=== PATIENT | female | born 2000 | race American Indian/Alaskan Native ===

== ENCOUNTER 2024-05-20 21:17 | Emergency (ER) | payer BC, MEDICAID, SELFPAY ==
[2024-05-20 22:04] VITALS: BP 146/84; PULSE 60; RESP 18; TEMP 36.7; O2SAT 95; BMI 38.0
--- NOTE | 2024-05-20 22:07 | EKG_ITS ---
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
--- NOTE | 2024-05-20 22:07 | XR_ITS ---
Examination: PA chest single view Technique: Upright PA chest single view Exam date and time: May 20, 2024 1013 hrs. Indications: 2 days with chest pain Findings: Normal heart size Lungs are clear The osseous structures are intact Impression: No active disease
--- NOTE | 2024-05-20 22:08 | EDRME_ITS ---
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 There is also some weird feeling in her head. Patient gave recently and was discharged from [place] today. Patient noticed these signs during her 6 hour car trip back here where she lives. Chief Complaint: General Adult/Misc Complain Vital signs: Vital Signs Temperature 98.1 F 05/20/24 22:04 Pulse Rate 60 05/20/24 22:04 Respiratory Rate 18 05/20/24 22:04 Blood Pressure 146/84 H 05/20/24 22:04 Pulse Oximetry (%) 95 05/20/24 22:04 Oxygen Delivery Method Room Air 05/20/24 22:04
[2024-05-20 22:53] LABS: Basophils % (Auto) 0 % (0-2.5); Eosinophils % (Auto) 0 % (0-10); Hematocrit 27.4 % (36.0-46.0); Immature Granulocytes % (Auto) 1 % (0-0); Immature Granulocytes Auto 0.06 Thou/mm3 (0.00-0.00); Lymphocytes # (Auto) 1.4 Thou/mm3 (1.0-4.8); Lymphocytes % (Auto) 11 % (10-50); Mean Corpuscular Hemoglobin 23.3 pg (25.0-35.0); Mean Corpuscular Volume 75 fL (80-100); Monocytes # (Auto) 0.5 Thou/mm3 (0.0-0.8); Monocytes % (Auto) 4 % (0-12); Neutrophils # (Auto) 10.8 Thou/mm3 (1.8-7.7); Neutrophils % (Auto) 84 % (37-80); Nucleated Red Blood Cell % 0 /100 WBC (0); Platelet Count 247 Thou/mm3 (140-440); RDW Standard Deviation 54.7 fL (36.4-46.3); Red Blood Count 3.65 Miln/mm3 (4.00-5.20); White Blood Count 12.7 Thou/mm3 (3.6-11.0)
[2024-05-20 22:59] LABS: Partial Thromboplastin Time 26.1 Seconds (22.0-36.0)
[2024-05-20 23:02] LABS: Hemoglobin 8.5 g/dL (12.0-16.0)
[2024-05-20 23:16] LABS: Alanine Aminotransferase 17 U/L (10-49); Albumin, Serum 3.7 gm/dL (3.5-5.0); Albumin/Globulin Ratio 1.7 (1.2-2.2); Alkaline Phosphatase 210 U/L (46-116); Anion Gap 6 (7-16); Aspartate Amino Transferase 21 U/L (0-34); BUN/Creatinine Ratio 10 Ratio (12-20); Bilirubin,Total 0.4 mg/dL (0.3-1.2); Blood Urea Nitrogen 6 mg/dL (9-23); Calcium 8.8 mg/dL (8.3-10.6); Carbon Dioxide 24.8 mMol/L (20.0-31.0); Chloride 110 mMol/L (98-107); Creatinine (Component) 0.6 mg/dL (0.6-1.3); Estimated Creatinine Clearance 139.6 mL/min (>60); Globulin 2.2 gm/dL (2.3-3.5); Glucose 78 mg/dL (74-106); Osmolality,Calculated 277 (275-295); Potassium 4.4 mMol/L (3.4-5.1); Sodium 141 mMol/L (136-145); Total Protein 5.9 gm/dL (5.7-8.2); Troponin I < 0.020 ng/mL (0.0-0.045); eGFR > 60 See Note
[2024-05-21 00:03] LABS: B-Type Natriuretic Peptide 118 pg/mL (0-100)
--- NOTE | 2024-05-21 00:55 | XR_ITS ---
Examination: Duplex scan of the lower extremity, unilateral right complete Date and time of exam: May 21, 2024 0101 hrs. Indications: liver 11/11/2023 with onset right leg swelling Technique: Duplex scan of the extremity veins using B-mode/grayscale imaging and Doppler spectral analysis and color flow Attention is directed to internal echogenicity, compression and augmentation involving these veins, color flow assessment, spectral analysis Findings: Major deep venous structures in the extremity demonstrate normal course and caliber. There is no evidence of deep vein thrombosis. Normal color flow and spectral analysis Impression: Negative for DVT..
[2024-05-21 01:54] LABS: Prothrombin Time 10.6 Seconds (9.0-12.2)
[2024-05-21 02:00] VITALS: BP 156/62; PULSE 56; RESP 16; TEMP 36.8; O2SAT 100
[2024-05-21 02:06] VITALS: BP 156/62; PULSE 55; RESP 18; TEMP 37.1; O2SAT 99
--- NOTE | 2024-05-21 02:06 | PRELIM_ITS ---
Right lower extremity venous Doppler ultrasound. May 21, 2024 at 0101 hours Clinical history: Ru le out deep vein thrombosis.No prior study is available for comparison.Findings:Nguyen scale, color douglas w and spectral Doppler evaluation of the right lower extremity deep veins were performed.The common f emoral, superficial femoral and popliteal veins are patent and compressible. Normal respiratory varia tion and augmentation are noted. The great saphenous vein is patent and compressible at the level of the saphenofemoral junction. The calf veins to the extent visualized are patent. Impression:No evide nce of deep venous thrombosis in the right lower extremity. Report Electronically Signed By: Roberto ortiz 05/21/2024 2:05:20 AM [EST]
--- NOTE | 2024-05-21 02:15 | PD.EDADULT ---
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 There is also some weird feeling in her head. Patient gave recently and was discharged from [place] today. Patient noticed these signs during her 6 hour car trip back here where she lives. -------- Dr. Sharp?s Main ED Evaluation: 23yo female presents to the ED for a chief complaint of RLE swelling. Patient states she recently gave vaginal at [place] and was discharged today. She states she previously had RLE swelling while she was admitted and was advised to ambulate more. She states she feels her swelling worsened, so she came in for evaluation. She denies any N/V, fever, chills, chest pain, shortness of breath or any other associated symptoms. Patient notes she was previously diagnosed with preeclampsia. Related Data Home Medications ?Medication ?Instructions ?Recorded ?Confirmed albuterol sulfate 90 mcg/actuation 2 puff inhalation .PRN PRN 09/06/23 09/06/23 aerosol inhaler cholecalciferol (vitamin D3) 1,250 1,250 mcg PO QWEEK 09/06/23 09/06/23 mcg (50,000 unit) capsule Allergies Allergy/AdvReac Type Severity Reaction Status Date / Time aspirin Allergy Intermediate eyes swell Verified 04/25/23 18:46 ibuprofen Allergy Intermediate eyes swell Verified 04/25/23 18:46 Review of Systems Review of Systems Systems Reviewed: All systems reviewed, normal except as documented Past Medical History Past Medical History CARDIAC: Negative Congestive Heart Failure RESPIRATORY: Positive Respiratory Disorders and Asthma; Negative Chronic Obstructive Pulmonary Disease (COPD) GENITOURINARY: Negative Renal Disease ENDOCRINE: Negative Diabetes Mellitus Type 1 or Diabetes Mellitus Type 2 Surgical History SURGICAL: Positive Cardiac Surgery Social History SMOKING STATUS: Former smoker ED Exam Narrative Physical exam: GENERAL APPEARANCE: alert and oriented x 4, well-developed, well-nourished, no acute distress VITALS: All vitals were reviewed and the pulse ox is 99% on room air, which is normal according to my interpretation. HEENT: Normocephalic, atraumatic; pupils equal, round, reactive to light; EOMI; mucous membranes pink, moist; oropharynx clear NECK: Supple LUNGS: CTABL; no wheezes, no rales, no rhonchi HEART: Regular rate, regular rhythm; normal S1, S2; no murmurs ABDOMEN: non distended; normal BS; soft, no tenderness, no guarding, no rebound; no masses, no organomegaly, no hernia BACK: no CVA tenderness EXTREMITIES: atraumatic; bilateral lower extremity nonpitting edema R>L NEUROLOGIC: awake; alert and oriented x4; cranial nerves II-XII grossly intact; no focal sensory or motor deficits PSYCHIATRIC: appropriate mood and affect SKIN: warm, dry, normal color; no rashes Course Course Course Narrative: CXR is ordered for determining the etiology of chest pain per MONIE Lemus. 0253: Patient's repeat blood pressure is 139/65. Patient is stable to be discharged home. Quality Measures none Orders Category Date Time Status EKG (ED ONLY) *Do not use* NOW Care 05/20/24 22:08 Completed Discharge Routine Discharge 05/21/24 02:57 Active EKG (ED Only) Stat Exams 05/20/24 22:07 Draft US venous doppler LE RT Stat Exams 05/21/24 00:55 Taken XR chest 1V portable Stat Exams 05/20/24 22:07 Completed BNP [B-Type Natriuretic Peptide] Stat Lab 05/20/24 22:34 Completed CBC Stat Lab 05/20/24 22:34 Completed Comprehensive Metabolic Panel Stat Lab 05/20/24 22:34 Completed INR [Prothrombin Time with INR] Stat Lab 05/21/24 00:25 Completed Partial Thromboplastin Time Stat Lab 05/20/24 22:34 Completed Troponin I Stat Lab 05/20/24 22:34 Completed Vital Signs Vital signs: Vital Signs Temperature 98.1 F 05/20/24 22:04 Pulse Rate 60 05/20/24 22:04 Respiratory Rate 18 05/20/24 22:04 Blood Pressure 146/84 H 05/20/24 22:04 Pulse Oximetry (%) 95 05/20/24 22:04 Oxygen Delivery Method Room Air 05/20/24 22:04 [facility] Patient data External records reviewed:: [facility] previous records (Per chart review, patient was seen here on 11/02/23 for strep pharyngitis.) Clinical information provided by:: patient Social determinants that could affect healthcare access:: none Patient has the following chronic illnesses:: asthma How is presenting disease/condition affected by chronic disease/condition?: uneffected by Evaluation data The following diagnostics were reviewed and interpreted by me:: lab results, radiology exam(s) and EKG tracing(s) Lab and/or radiology exams considered but not ordered:: none Interpretation Summary: WBC count is elevated at 12.7, CMP is normal, BNP is slightly elevated at 118, PTT is normal, PT and INR are normal, according to my interpretation. EKG done at 2221, sinus bradycardia, rate of 54, normal axis, no ectopy, no acute ischemia, according to my interpretation. ----- [facility] Report Signed Patient: [employer] Record#: [id number] Birthdate: 2000 Age/Sex: 23 / F Location: [facility] Attending Dr: Ordering Physician: Emanuel Lemus PA-C Date of Service: 05/20/24 Procedure(s): XR chest 1V portable Accession Number(s): [id number] cc: Moose Chiang MD; Emanuel Lemus PA-C~ Examination: PA chest single view Technique: Upright PA chest single view Exam date and time: May 20, 2024 1013 hrs. Indications: 2 days with chest pain Findings: Normal heart size Lungs are clear The osseous structures are intact Impression: No active disease Dictated By: Moose Chiang MD Signed By: <Electronically signed by Moose Chiang MD in OV> 05/20/249 ------ [facility] Preliminary Report Draft Patient: [employer] Record#: [id number] Birthdate: 2000 Age/Sex: 23 / F Location: [facility] Attending Dr: Ordering Physician: Date of Service: Procedure(s): Accession Number(s): cc: ~ Right lower extremity venous Doppler ultrasound. May 21, 2024 at 0101 hours Clinical history: Rule out deep vein thrombosis. No prior study is available for comparison. Findings: Nguyen scale, color flow and spectral Doppler evaluation of the right lower extremity deep veins were performed. The common femoral, superficial femoral and popliteal veins are patent and compressible. Normal respiratory variation and augmentation are noted. The great saphenous vein is patent and compressible at the level of the saphenofemoral junction. The calf veins to the extent visualized are patent. Impression: No evidence of deep venous thrombosis in the right lower extremity. Report Electronically Signed By: Roberto Suresh 05/21/2024 2:05:20 AM [EST] Medications Medications considered but not ordered:: none Medication administrations:: see above, if any Consultations Consultation(s) initiated? (list below): No Diagnosis Differential Diagnosis ED Complaint MDM: DVT, preeclampsia, eclampsia, heart failure Most likely diagnosis given after review of the tests above:: see below Admission Indicated Admission indicated?: not indicated Explain why admission is indicated or not indicated:: Admission criteria not met. Admission Request Was there a request for admission?: No Disposition Plan Disposition Plan: Discharge Discharge Attestation Discharge Attestation: The patient and all family members were given an opportunity to ask questions and understood the discharge instructions. Discharge instructions specifically effects, indications for sooner follow up or return to the emergency department, and the expected course of current diagnosis. Patient condition: Stable Medical Decision Making Differential Diagnosis Differential Diagnosis: DVT, preeclampsia, eclampsia, heart failure Lab Data 05/20/24 22:34 05/20/24 22:34 Labs: Lab Results 05/20/24 05/21/24 Range/Units 22:34 00:25 WBC 12.7 H (3.6-11.0) Thou/mm3 RBC 3.65 L (4.00-5.20) Miln/mm3 Hgb 8.5 L (12.0-16.0) g/dL Hct 27.4 L (36.0-46.0) % MCV 75 L (80-100) fL MCH 23.3 L (25.0-35.0) pg MCHC 31.0 (31.0-37.0) g/dl RDW Std Deviation 54.7 H (36.4-46.3) fL Plt Count 247 (140-440) Thou/mm3 Neut % (Auto) 84 H (37-80) % Lymph % (Auto) 11 (10-50) % [place] % (Auto) 4 (0-12) % Eos % (Auto) 0 (0-10) % Baso % (Auto) 0 (0-2.5) % Neut # (Auto) 10.8 H (1.8-7.7) Thou/mm3 Lymph # (Auto) 1.4 (1.0-4.8) Thou/mm3 [place] # (Auto) 0.5 (0.0-0.8) Thou/mm3 Eos # (Auto) 0.0 (0.0-0.5) Thou/mm3 Baso # (Auto) 0.0 (0.0-0.2) Thou/mm3 Immature Gran # (Auto) 0.06 H (0.00-0.00) Thou/mm3 Absolute Nucleated RBC 0.00 (0.00-0.00) Thou/mm3 Immature Gran % 1 H (0-0) % Nucleated RBC % 0 (0) /100 WBC PT 10.6 (9.0-12.2) Seconds INR 1.0 (0.9-1.3) APTT 26.1 (22.0-36.0) Seconds Sodium 141 (136-145) mMol/L Potassium 4.4 (3.4-5.1) mMol/L Chloride 110 H (98-107) mMol/L Carbon Dioxide 24.8 (20.0-31.0) mMol/L Anion Gap 6 L (7-16) BUN 6 L (9-23) mg/dL Creatinine 0.6 (0.6-1.3) mg/dL Estim Creat Clear Calc 139.6 (>60) mL/min eGFR > 60 (60 - ) See Note BUN/Creatinine Ratio 10 L (12-20) Ratio Glucose 78 (74-106) mg/dL Calculated Osmolality 277 (275-295) Calcium 8.8 (8.3-10.6) mg/dL Corrected Calcium 9.0 (8.5-10.1) mg/dL Total Bilirubin 0.4 (0.3-1.2) mg/dL AST 21 (0-34) U/L ALT 17 (10-49) U/L Alkaline Phosphatase 210 H (46-116) U/L Troponin I < 0.020 (0.0-0.045) ng/mL B-Natriuretic Peptide 118 H (0-100) pg/mL Total Protein 5.9 (5.7-8.2) gm/dL Albumin 3.7 (3.5-5.0) gm/dL Globulin 2.2 L (2.3-3.5) gm/dL Albumin/Globulin Ratio 1.7 (1.2-2.2) Discharge Plan Plan Patient Disposition: HOME (Self Care) Disposition Comment: Stable for discharge Patient condition on transfer: Stable Prescriptions/Referrals Prescriptions/Med Rec: No Action albuterol sulfate 90 mcg/actuation HFA aerosol inhaler 2 puff inhalation .PRN PRN cholecalciferol (vitamin D3) 1,250 mcg (50,000 unit) capsule 1,250 mcg PO QWEEK Referrals: Caleb Winters PA-C [Primary Care Provider] - In 1 week Problem List Clinical Impression: Pedal edema, edema Patient/Caregiver Discharge Instructions Discharge Activity: activity as tolerated Education Materials: ED Leg Swelling in Both Legs Additional Instructions: Please return to the emergency department for any worsening or any further medical problems. 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
[2024-05-21 02:53] VITALS: BP 139/65; PULSE 59; RESP 18; O2SAT 100
== END 2024-05-21 03:02 | disposition home or self-care (01) ==
PROVIDERS: Physician Assistant; Emergency Provider Emergency Medicine; PCP Physician Assistant
DX: O12.05 Gestational edema, complicating the puerperium (principal); O99.893 Other specified diseases and conditions complicating puerperium; R07.9 Chest pain, unspecified; R00.1 Bradycardia, unspecified
CPT/HCPCS: 36415; 71045; 80053; 81001; 83880; 84484; 85025; 85610; 85730; 93005; 93971; 99284

== ENCOUNTER → 2024-09-08 | Outpatient (CLI) | payer MEDICAID, SELFPAY ==
--- NOTE | 2024-09-08 10:45 | XR_ITS ---
Examination: Abdomen sonogram, complete Date and time of exam: September 08, 2024 1131 hours INDICATIONS: Irregular menses and left lower abdominal pain 3 months, . Technique: Multiple real-time grayscale transabdominal sonographic images of the abdomen have been obtained. Findings: Negative for gallstones Gallbladder wall 0.43 cm Normal common bile duct 0.4 cm Pancreatic head 2.1 cm Gallbladder not enlarged Liver 18.4 cm fatty infiltration Normal hepatopedal portal venous flow Patent IVC Right kidney 10.6 cm cortex 1.0 cm Left kidney 11.4 cm cortex 1.7 cm Spleen 10.7 cm with fluid adjacent to the spleen measuring 6.5 x 5.9 x 6.0 cm IMPRESSION: Fluid collection adjacent to the spleen, recommend CT scan abdomen pelvis post intravenous contrast follow-up
--- NOTE | 2024-09-08 11:15 | XR_ITS ---
Examination: Pelvic ultrasound, transabdominal, complete Technique: Transabdominal ultrasound of the pelvis performed using grayscale imaging Date and time of exam: September 08, 2024 1123 hours INDICATIONS: Irregular menses 3 months, 3 months FINDINGS: Uterus 7.2 cm endometrial stripe 0.7 cm Intrauterine device satisfactory position Right ovary 3.3 cm arterial flow Left ovary 2.4 cm arterial flow IMPRESSION: No uterine mass or intrauterine gestation No adnexal mass
== END | disposition home or self-care (01) ==
LOC: CDIM 11:07
PROVIDERS: PCP Nurse Practitioner Family; Referring Provider Nurse Practitioner Family; Visit Provider Nurse Practitioner Family
DX: K59.09 Other constipation (principal); N92.6 Irregular menstruation, unspecified; R10.30 Lower abdominal pain, unspecified; Z97.5 Presence of (intrauterine) contraceptive device
CPT/HCPCS: 76700; 76856

== ENCOUNTER → 2024-10-26 | Outpatient (CLI) | payer MEDICAID, SELFPAY ==
[2024-10-23 16:49] LABS: HCG Qualitative,Urine Negative
--- NOTE | 2024-10-26 10:30 | XR_ITS ---
Examination: CT abdomen, without intravenous contrast. CT pelvis, without intravenous contrast. CT abdomen, with intravenous contrast. CT pelvis, with intravenous contrast. 2-D sagittal coronal reconstructions. Date and time of exam:October 26, 2024 1035 hours Comparison April 25, 2023 INDICATIONS: Right upper abdominal pain beginning 5 months ago CTDI: vol (mGy) 18.8 DLP: (mGycm) 996 Technique: Multiple 3.0 axial images of the abdomen and pelvis without intravenous contrast, 3.0 mm slice thickness. Multiple 3.0 postcontrast images abdomen and pelvis also obtained, post intravenous injection 60 cc [id number] 2-D sagittal coronal reconstructions Nodose protocols, automated exposure control, adjustment MA KV according to patient size FINDINGS: No focal liver or splenic lesion Contracted gallbladder No pancreatic or adrenal mass No renal or ureteral calculi, no hydronephrosis Aorta normal size No pericecal inflammatory change No bowel obstruction or diverticulitis Mild to moderate free fluid in the pelvis Intrauterine device is abnormally low in position in retroverted uterus Bladder intact Osseous structures intact IMPRESSION: Abnormally low position of intrauterine device No CT findings of appendicitis bowel obstruction or diverticulitis
== END | disposition home or self-care (01) ==
LOC: CCTX 09:59
PROVIDERS: Referring Provider Nurse Practitioner Family; Visit Provider Nurse Practitioner Family
DX: R10.11 Right upper quadrant pain (principal); Z30.431 Encounter for routine checking of intrauterine contraceptive device; Z32.00 Encounter for pregnancy test, result unknown
CPT/HCPCS: 74178; 81025; A4649; Q9967

== ENCOUNTER → 2024-12-22 | Outpatient (BNVA) | payer MEDICAID, SELFPAY | END | disposition home or self-care (01) | PROVIDERS: PCP Nurse Practitioner Family; Referring Provider Nurse Practitioner Family; Visit Provider Urology | DX: Z09 Encounter for follow-up examination after completed treatment for conditions other than malignant neoplasm (principal); Z87.440 Personal history of urinary (tract) infections; F32.A Depression, unspecified; Z87.891 Personal history of nicotine dependence | CPT/HCPCS: 81003; 99212; G0463 ==

== ENCOUNTER 2025-01-11 13:51 | Outpatient (AMB) | payer MEDICAID, SELFPAY ==
[2025-01-11 14:02] VITALS: BP 109/75; PULSE 81; RESP 18; TEMP 36.6; O2SAT 98; BMI 37.1
--- NOTE | 2025-01-11 14:02 | PD.GSCLVISIT ---
Vital Signs - [facility] 01/11/25 14:02 Height 1.5 m Height Method Stated Weight 83.461 kg Weight Measurement Method Standing Scale BMI 37.1 BP 109/75 Blood Pressure Source Automatic Cuff Blood Pressure Location Right Upper Arm Position Sitting Respiration 18 Pulse 81 Pulse Source Monitor Temp 97.9 F Temp Source Temporal Artery Scan Pulse Oximetry (%) 98 Oxygen Delivery Method Room Air Med/Allergies Allergies & Medications Allergies aspirin Allergy (Intermediate, Verified 01/11/25 14:04) eyes swell ibuprofen Allergy (Intermediate, Verified 01/11/25 14:04) eyes swell Medication Reconciliation No Known Home Medications 01/11/25 [History Confirmed 01/11/25] MA Intake Visit Data Collection New Patient or Established: Established Patient (seen at [facility] within 3 years) Seen by Clinical Staff ONLY (RN/MA): No Reason for Visit:: HEMORRHOID REFERRAL Pain Present Currently: Yes Pain Location: Buttock Pain scale:: 8 Pain Scale Used: Gonzalez-Franco/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 Required: No PCP or OBGYN visit in last 3 months: Yes Hx Now: No Date of Last Menstrual Period: 12/13/24 Do You Feel Safe at Home: Yes Authorities Contacted: N/A Smoking Status Smoking Status: Former smoker (VAPES) Are you interested in quitting?: No Would you like additional Smoking Cessation Counseling?: No Immunization / Flu Flu Vaccine in the Last 12 Months: No Flu Vaccine Exclusion Criteria: No Exclusion Criteria Past Medical History Past Medical History CARDIAC: Negative Congestive Heart Failure RESPIRATORY: Positive Asthma; Negative Chronic Obstructive Pulmonary Disease (COPD) GENITOURINARY: Negative Renal Disease REPRODUCTIVE: Positive Previous Pregnancies ENDOCRINE: Negative Diabetes Mellitus Type 1 or Diabetes Mellitus Type 2 Surgical History SURGICAL: Positive Cardiac Surgery Social History SMOKING STATUS: Smoking status: Former smoker (VAPES) ALCOHOL: Alcohol Intake: Never Past Medical History Comments PMH COMMENT: BIRTHCONTROL METHOD IS IUD HPI HPI Narrative 24F presenting with symptomatic hemorrhoids. Pt reports that since she gave 8 mos ago she has noticed hemorrhoids which are painful, cause bleeding and make it somewhat difficult to keep the area clean. Before pt states she had regular BMs but since then she is having more difficulty having a BM, now going only 1-2 times per week and she does have to strain. Pt has tried numerous OTC and prescription remedies and feel they do not help. She admits not drinking a lot of water daily but she has tried fiber gummies which she also felt did not help. Pt denied any pencil thin stools, loose stools, anorexia and unintentional weight loss. She has never had a colonoscopy PMH: Congenital heart disease PSHx: Heart surgery as a (pt states she sees a nurse consultant yearly) Meds: None Allergies: Morphine, ibuprofen Family hx: No known CRC Social hx: Nonsmoker ROS Review of Systems Systems Reviewed: All systems reviewed, normal except as documented Objective/Exam General General Appearance: alert, cooperative and well groomed Resp Respiratory exam: Absent respiratory distress Assessment & Plan Diagnosis / Problem List (1) Hemorrhoids: Status: Acute Assessment & Plan: 24F presenting with symptomatic hemorrhoids in the setting of constipation. I recommended pt increase her water intake for goal of 2L per day and initiate fiber in powder form. I also recommended sitz baths and gave pt an informative handout with this information. I explained that if her symptoms persist after her BMs are optimized, at that point we could consider surgery but I would not recommend it now as she would be at high risk for hemorrhoid persistence/recurrence. All questions were answered and pt is agreeable with this plan Plan: F/u in 6 weeks Patient Portal Questionaires Social History Tobacco History Smoking Status: Former smoker (VAPES) Alcohol History Alcohol Intake: Never Domestic Abuse History Do You Feel Safe at Home: Yes Review of Systems Report any current symptoms Only answer those that you have currently: Past Medical History Past Medical History Have you ever been diagnosed with any of the following: Cardiology Problems Congestive Heart Failure: No Respiratory Problems Chronic Obstructive Pulmonary Disease (COPD): No Asthma: Yes Genital/Urinary Problems Renal Disease: No Reproductive Problems Previous Pregnancies: Yes Endocrine Problems Diabetes Mellitus Type 1: No Diabetes Mellitus Type 2: No
== END 2025-01-11 14:57 | disposition home or self-care (01) ==
LOC: HODSRG 13:51
PROVIDERS: PCP Nurse Practitioner Family; Referring Provider Nurse Practitioner Family; Supervising Provider Surgery; Visit Provider Surgery
DX: K64.9 Unspecified hemorrhoids (principal)
CPT/HCPCS: 99213; G0463

== ENCOUNTER 2025-02-23 08:45 | Outpatient (AMB) | payer MEDICAID, SELFPAY ==
[2025-02-23 09:12] VITALS: BP 113/62; PULSE 60; RESP 16; TEMP 36.2; O2SAT 98; BMI 36.8
--- NOTE | 2025-02-23 09:12 | AMB.GYNCLNOT ---
Vital Signs 02/23/25 09:12 Height 1.5 m Height Method Stated Weight 82.781 kg Weight Measurement Method Standing Scale BMI 36.8 BP 113/62 Blood Pressure Source Automatic Cuff Blood Pressure Location Right Lower Arm Position Sitting Respiration 16 Pulse 60 Pulse Source Monitor Temp 97.2 F Temp Source Oral Pulse Oximetry (%) 98 Oxygen Delivery Method Room Air Allergies/Home Meds Allergies & Medications Allergies aspirin Allergy (Intermediate, Verified 02/23/25 09:13) eyes swell ibuprofen Allergy (Intermediate, Verified 02/23/25 09:13) eyes swell Medication Reconciliation No Known Home Medications 01/11/25 [History Confirmed 02/23/25] Intake Visit Data Collection New Patient or Established: Established Patient (seen at [facility] within 3 years) Reason for Visit:: REFERRAL Seen by Clinical Staff ONLY (RN/MA): No Clinical Safety Specialist Required: No Do You Feel Safe at Home: Yes Authorities Contacted: N/A PCP or OBGYN visit in last 3 months: Yes Date of Last PCP or OBGYN visit: 01/11/25 Hx Now: No Are you currently on any form of Control: No Last menstrual period: 02/10/25 Pain Present Currently: No Pain Scale Used: Gonzalez-Franco/Numerical Pain scale:: 0 Smoking Status Smoking Status: Never smoker (VAPES) 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 1. Little interest or pleasure in doing things: not at all 2. Feeling down, depressed, or hopeless: not at all Total score: 0 PHQ-9 3. Trouble falling or staying asleep, or sleeping too much: Not at all 4. Feeling tired or having little energy: Not at all 5. Poor appetite or overeating: Not at all 6. Feeling bad about yourself - or that you are a failure or have let yourself or your family down: Not at all 7. Trouble concentrating on things, such as reading the newspaper or watching television: Not at all 8. Moving or speaking so slowly that other people could have noticed? - Or the opposite - being so fidgety or restless that you have been moving around a lot more than usual: not at all 9. Thoughts that you would be better off or of hurting yourself in some way: Not at all Total score: 0 If you checked off any problems, how difficult have these problems made it for you to do your work, take care of things at home, or get along with other people?: not difficult at all Source: Developed by Drs. Yakov Sheffield, Emi Noble, Manuel Bowser and colleagues, with an educational laurie from [employer]. Depression screen completed yes Social History Living Situation History Marital Status: Single Lives With: Family Housing: House Tobacco History Smoking Status: Never smoker (VAPES) Second Hand Smoke Exposure: No Alcohol History Alcohol Intake: Never Domestic Abuse History Do You Feel Safe at Home: Yes History of Present Illness HPI Elías Maya is a 24-year-old female presenting for consultation regarding pelvic pain. 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 The patient's history of pain complaints dates back to October 2017 when she presented to the ER with right flank pain, fevers, and chills. She was treated for unknown flank pain with hematuria and recommended urology follow-up. In December 2017, she was seen in urgent care for multiple nonspecific pain symptoms. In September 2020, she presented with epigastric pain, diarrhea, and nausea. In April 2020, she experienced left lower quadrant pain radiating to the right quadrant and was discharged with diagnoses including cystitis, ruptured ovarian cyst, UTI, and leukocytosis. Two days later, she was again diagnosed with a ruptured ovarian cyst and managed conservatively. The patient has a history of recurrent UTIs, for which she was seen by a urologist in August 2023 and December 2024. She was given conservative management and treated based on urine culture results. In October 2023, she presented to the ED with a facial rash and was treated for streptococcus infection and allison vaginitis. In April 2024, she experienced chest pain, right lower extremity swelling, and a weird feeling in her head, treated as edema of nonspecific cause. Most recently, in December 2024, the patient consulted a general surgeon for symptomatic hemorrhoids and concomitant constipation, receiving conservative management. She reports a family history of Sj?gren's syndrome and has recurrent complaints of dry eyes, for which she has been referred to Rheumatology. 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 - Recurrent urinary tract infections - Ruptured ovarian cyst - Streptococcus infection with allison vaginitis - pedal edema - Symptomatic hemorrhoids with constipation - Dry eyes, possibly related to suspected Sj?gren's syndrome Surgical History: - Congenital heart anomaly repair at [facility] during childhood Obstetric History: - GTPAL: L1 - Delivered in 2023 - period complicated by edema of nonspecific cause Social History: - Smoking history noted Exam General General Appearance: alert, in no apparent distress and healthy appearing Head Head exam: atraumatic Neck Neck exam: Present normal inspection and trachea midline Chest Chest inspection: Present normal inspection and symmetric chest wall rise External exam: Present normal external exam; Absent tenderness Neuro Neurological exam: Present oriented X3 Psych Psychiatric exam: Present normal affect and normal mood Office Procedures OB Clinic LOC & Office Proc's Nursing/Assessment Patient Status: Established Patient OB Clinic Nursing Assessment: Medication Reconciliation, Update PMH in EMR and Vital Signs OB Clinic Coordination of Care: Consent,records obtained, informed consent, Education Simp Pt/Fam, Lab and Imaging orders, Results/Orders obtained and Staff clarify orders Established Patient Charge Established Patient Point Assignment: 80 Established Patient Point Charge: EP Level 3 (80-115) Assessment & Plan Diagnosis / Problem List (1) Pelvic and perineal pain: Status: Acute (2) Mechanical complication of IUD: Status: Acute (3) Congenital heart anomaly: Status: Acute (4) Hemorrhoids: Status: Acute (5) Recurrent UTI: Status: Acute (6) Smoking history: Status: Acute (7) Depression: Status: Acute (8) Nausea and vomiting: Status: Acute (9) Abdominal pain: Status: Acute Plan Recurrent Pelvic Pain Assessment: Patient has a long-standing history of recurrent pelvic pain with multiple presentations to various healthcare settings since 2018. The pain has been described as right flank pain, epigastric pain, and left lower quadrant pain radiating to the right quadrant. Previous diagnoses have included ruptured ovarian cyst, cystitis, and UTI. The patient's history is complicated by multiple nonspecific pain symptoms, suggesting a possible chronic pain syndrome. Differential diagnoses include endometriosis, pelvic inflammatory disease, interstitial cystitis, and functional abdominal pain syndrome. Plan: - Refer to Rheumatology for evaluation of possible Sj?gren's syndrome, given family history and complaints of dry eyes - Consider pelvic ultrasound to evaluate for recurrent ovarian cysts or other pelvic pathology - Recommend follow-up with Urology for management of recurrent UTIs - Discuss pain management strategies, including both pharmacological and non-pharmacological approaches - Schedule follow-up in 4-6 weeks to reassess symptoms and review trainer recommendations Recurrent Urinary Tract Infections (UTIs) Assessment: Patient has a history of recurrent UTIs, as evidenced by multiple ER visits and urology consultations. The most recent urology visit in December 2024 did not result in specific treatment. Previous management included antibiotic treatment based on urine culture results and conservative measures for prevention. Plan: - Review previous urine culture results and antibiotic sensitivities - Consider prophylactic antibiotics if indicated based on frequency of infections - Educate patient on UTI prevention strategies - Recommend follow-up with Urology in 3 months to reassess management plan Gynecological Issues Assessment: Patient has a history of ruptured ovarian cysts and was previously treated for allison vaginitis. These issues may be contributing to her recurrent pelvic pain and require ongoing monitoring. 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 Current cardiac status and potential impact on other health issues is unclear. Plan: - Obtain records from [facility] regarding congenital heart repair - Consider cardiology consultation to assess current cardiac status and any potential impact on other health issues - Ensure patient is up-to-date on recommended cardiac follow-up Depression Assessment: Patient has a documented history of depression, which may be exacerbated by or contributing to her chronic pain symptoms. Plan: - Assess current mental health status and effectiveness of any ongoing treatment - Consider referral to psychiatry or psychology for evaluation and management - Discuss potential impact of depression on chronic pain and overall health Smoking History Assessment: Patient has a documented smoking history, which may contribute to various health issues and increase risk for future complications. Plan: - Assess current smoking status and readiness to quit - Provide smoking cessation counseling and resources - Consider pharmacological aids for smoking cessation if patient is interested Hemorrhoids and Constipation Assessment: Patient was seen by general surgery in December 2024 for symptomatic hemorrhoids and concomitant constipation. Conservative management was recommended. Plan: - Review effectiveness of previous conservative management - Provide dietary recommendations to improve bowel habits - Consider [id number] treatments for symptomatic relief of hemorrhoids - Follow up with general surgery as recommended
== END 2025-02-23 09:23 | disposition home or self-care (01) ==
LOC: HODSOBC 08:45
PROVIDERS: Supervising Provider Obstetrics & Gynecology; Visit Provider Obstetrics & Gynecology
DX: R10.2 Pelvic and perineal pain (principal); K64.9 Unspecified hemorrhoids; F32.A Depression, unspecified; N39.0 Urinary tract infection, site not specified; R11.2 Nausea with vomiting, unspecified; F17.200 Nicotine dependence, unspecified, uncomplicated; Z87.74 Personal history of (corrected) congenital malformations of heart and circulatory system; Z87.440 Personal history of urinary (tract) infections; T83.39XA Other mechanical complication of intrauterine contraceptive device, initial encounter; Z88.6 Allergy status to analgesic agent; Y76.8 Miscellaneous obstetric and gynecological devices associated with adverse incidents, not elsewhere classified; Y84.8 Other medical procedures as the cause of abnormal reaction of the patient, or of later complication, without mention of misadventure at the time of the procedure
CPT/HCPCS: 99213; G0463

== ENCOUNTER → 2025-03-09 | Outpatient (CLI) | payer MEDICAID, SELFPAY ==
--- NOTE | 2025-03-09 16:16 | XR_ITS ---
Examination: Transvaginal ultrasound of the pelvis, complete Technique: Transvaginal sonographic images pelvis performed using odom scale imaging Exam date and time: March 09, 2025 1622 hrs. Indications: Abnormally low position intrauterine device on CT scan of the pelvis October 26, 2024. Findings: Uterus 6.9 cm Intrauterine device satisfactory position Endometrial stripe 0.8 cm No uterine mass. Right ovary 3.0 cm arterial flow. Left ovary 3.2 cm arterial flow 17 x 18 mm cyst Impression: Satisfactory position intrauterine device.
== END | disposition home or self-care (01) ==
LOC: SDIM 16:07
PROVIDERS: Referring Provider Obstetrics & Gynecology; Visit Provider Obstetrics & Gynecology
DX: R10.2 Pelvic and perineal pain (principal); Z30.431 Encounter for routine checking of intrauterine contraceptive device
CPT/HCPCS: 76830

== ENCOUNTER → 2025-03-26 | Outpatient (CLI) | payer MEDICAID, SELFPAY ==
[2025-03-26 12:19] LABS: HCG Qualitative,Urine Negative
--- NOTE | 2025-03-26 13:00 | XR_ITS ---
Examination: MRI pelvis with intravenous contrast TECHNIQUE: Multiple axial sagittal coronal MRI pelvis images post intravenous administration 15 cc gadolinium INDICATIONS: Pelvic and perineal pain 9 months, IUD implanted 10 months ago FINDINGS: Retroverted uterus, 7.0 x 3.8 x 3.6 cm Intrauterine device is abnormally low in position in the lower uterine segment and cervix Endometrial stripe measures 4 mm No enhancing uterine mass Right ovary 2.8 x 2.6 cm Left ovary 3.0 x 2.2 cm, bilateral subcentimeter ovarian follicles No free fluid in the pelvis No pelvic adenopathy Urinary bladder intact IMPRESSION: Intrauterine device abnormally low in position in the lower uterine segment and cervix No uterine or adnexal mass
== END | disposition home or self-care (01) ==
LOC: SMRI 11:49
PROVIDERS: PCP Physician Assistant; Referring Provider Obstetrics & Gynecology; Visit Provider Obstetrics & Gynecology
DX: R10.2 Pelvic and perineal pain (principal); R10.9 Unspecified abdominal pain; Z30.431 Encounter for routine checking of intrauterine contraceptive device; Z32.00 Encounter for pregnancy test, result unknown
CPT/HCPCS: 72196; 81025; A9577

== ENCOUNTER 2025-03-29 11:23 | Outpatient (AMB) | payer MEDICAID, SELFPAY ==
[2025-03-29 11:31] VITALS: BP 106/73; PULSE 90; RESP 17; TEMP 36.4; O2SAT 97; BMI 34.5
--- NOTE | 2025-03-29 11:31 | AMB.GYNCLNOT ---
Vital Signs 03/29/25 11:31 Height 1.5 m Height Method Stated Weight 77.734 kg Weight Measurement Method Standing Scale BMI 34.5 BP 106/73 Blood Pressure Source Automatic Cuff Blood Pressure Location Right Upper Arm Position Sitting Respiration 17 Pulse 90 Pulse Source Monitor Temp 97.5 F Temp Source Temporal Artery Scan Pulse Oximetry (%) 97 Oxygen Delivery Method Room Air Allergies/Home Meds Allergies & Medications Allergies aspirin Allergy (Intermediate, Verified 04/01/25 14:11) eyes swell ibuprofen Allergy (Intermediate, Verified 04/01/25 14:11) eyes swell Medication Reconciliation Linzess 145 mcg capsule (linaclotide) 145 mcg PO QDAY constipation #30 caps 04/01/25 [Rx] Intake Visit Data Collection New Patient or Established: Established Patient (seen at [facility] within 3 years) Reason for Visit:: 1 MO FOLLOW UP (MRI/US RESULTS IN CHART) Seen by Clinical Staff ONLY (RN/MA): No Laundry Worker Required: No Do You Feel Safe at Home: Yes Authorities Contacted: N/A PCP or OBGYN visit in last 3 months: Yes Date of Last PCP or OBGYN visit: 02/23/25 Hx Now: No Are you currently on any form of Control: Yes (IUD) Last menstrual period: 03/19/25 Pain Present Currently: Yes Pain Location: Abdomen Pain Scale Used: Gonzalez-Franco/Numerical Pain scale:: 4 Smoking Status Smoking Status: Never smoker (VAPES) 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 1. Little interest or pleasure in doing things: not at all 2. Feeling down, depressed, or hopeless: not at all Total score: 0 PHQ-9 3. Trouble falling or staying asleep, or sleeping too much: Not at all 4. Feeling tired or having little energy: Not at all 5. Poor appetite or overeating: Not at all 6. Feeling bad about yourself - or that you are a failure or have let yourself or your family down: Not at all 7. Trouble concentrating on things, such as reading the newspaper or watching television: Not at all 8. Moving or speaking so slowly that other people could have noticed? - Or the opposite - being so fidgety or restless that you have been moving around a lot more than usual: not at all 9. Thoughts that you would be better off or of hurting yourself in some way: Not at all Total score: 0 If you checked off any problems, how difficult have these problems made it for you to do your work, take care of things at home, or get along with other people?: not difficult at all Source: Developed by Drs. Yakov Sheffield, Emi Noble, Manuel Bowser and colleagues, with an educational laurie from [employer]. Depression screen completed yes Social History Living Situation History Marital Status: Unknown Lives With: Family Housing: House Tobacco History Smoking Status: Never smoker (VAPES) Second Hand Smoke Exposure: No Alcohol History Alcohol Intake: Never Domestic Abuse History Do You Feel Safe at Home: Yes History of Present Illness HPI Elías Maya presents with ongoing pelvic pain that she describes as still bad following her previous appointment for pelvic pain and IUD-related concerns. She reports irregular bleeding patterns, including spotting that began after her period ended 4 days ago. She anticipates her next period in 10 days. Her has been feeling her IUD during intercourse, suggesting the device may have migrated to a lower position. The patient inquires whether the low position of her IUD could be causing her to have periods more frequently than expected. She has a history of succulent syndrome, congenital heart anatomy with childhood repair, recurrent UTIs, history of ruptured ovarian cysts, history of pedilectoma, symptomatic hemorrhoids with constipation, dry eyes, and depression. She underwent congenital heart defect repair in childhood and pedilectoma. The patient was previously recommended to have a repeat urine culture and imaging studies as part of her ongoing evaluation. She is a 24-year-old female. The patient is and lives with her . ROS: Positive for pelvic pain and irregular menstrual bleeding with spotting between periods. Diagnostic Test Results and Labs: - Transvaginal ultrasound (03/09/2025): Uterus 6.9 cm, intrauterine device in satisfactory position, endometrial stripe 0.8 cm, no mass identified. Left ovary 3 cm with arterial flow, right ovary 3.2 cm with arterial flow, 17 x 18 mm. - Pelvic MRI (03/26/2024): Retroverted uterus measuring 7 x 3.8 x 3.6 cm, IUD positioned low in the lower uterine segment and cervix, endometrial stripe 4 mm, no enhancing uterine mass. Right ovary 2.8 x 2.6 cm, left ovary 3 x 2.2 cm with bilateral follicles. No pelvic fluid, no pelvic adenopathy, urinary bladder unremarkable. Exam General General Appearance: alert, in no apparent distress and healthy appearing Head Head exam: atraumatic Neck Neck exam: Present normal inspection and trachea midline Chest Chest inspection: Present normal inspection and symmetric chest wall rise External exam: Present normal external exam; Absent tenderness Neuro Neurological exam: Present oriented X3 Psych Psychiatric exam: Present normal affect and normal mood Office Procedures OBC Clinic LOC & Office Proc's Nursing/Assessment Patient Status: Established Patient OB Clinic Nursing Assessment: Medication Reconciliation, Update PMH in EMR and Vital Signs OB Clinic Coordination of Care: Complex Care and Chronic Disease 1-5, Education Complex Pt/Fam, Consent,records obtained, informed consent, Results/Orders obtained and Staff clarify orders Established Patient Charge Established Patient Point Assignment: 95 Established Patient Point Charge: EP Level 3 (80-115) Assessment & Plan Diagnosis / Problem List (1) Recurrent UTI: Status: Acute (2) Congenital heart anomaly: Status: Acute (3) Mechanical complication of IUD: Status: Acute (4) Pelvic and perineal pain: Status: Acute Plan Abnormal Uterine Bleeding with Low-Positioned Intrauterine Device (IUD): - Patient reports ongoing abnormal uterine bleeding, including recent spotting 4 days after last menstrual period. - Transabdominal ultrasound showed IUD in satisfactory position, however pelvic MRI revealed IUD to be low in the lower uterine segment and cervix. - Low position may explain abnormal bleeding symptoms and feeling the device. - Suboptimal positioning likely contributes to ineffective hormone delivery and inadequate contraceptive efficacy. Plan: - Remove current IUD and insert a new one within the next 7-10 days. - Patient to take ibuprofen 600 mg PO prior to the procedure for pain management. - If ibuprofen is contraindicated, patient to take acetaminophen. - Provide patient education on potential procedure-related cramping. - Schedule follow-up appointment for IUD removal and reinsertion. Pelvic Pain: - Patient reports ongoing pelvic pain. - Recent imaging studies show no significant pelvic pathology beyond the low-positioned IUD. - Ovaries appear normal in size with appropriate arterial flow. - No pelvic masses, fluid, or adenopathy identified. Plan: - Reassess pelvic pain symptoms at follow-up appointment after IUD replacement. - Provide copies of imaging results to patient.
== END 2025-03-29 12:09 | disposition home or self-care (01) ==
PROVIDERS: Supervising Provider Obstetrics & Gynecology; Visit Provider Obstetrics & Gynecology
DX: N39.0 Urinary tract infection, site not specified (principal); T83.32XA Displacement of intrauterine contraceptive device, initial encounter; N92.6 Irregular menstruation, unspecified; N93.9 Abnormal uterine and vaginal bleeding, unspecified; Q24.9 Congenital malformation of heart, unspecified; Z87.440 Personal history of urinary (tract) infections; Z88.6 Allergy status to analgesic agent; Y84.8 Other medical procedures as the cause of abnormal reaction of the patient, or of later complication, without mention of misadventure at the time of the procedure; Y76.2 Prosthetic and other implants, materials and accessory obstetric and gynecological devices associated with adverse incidents
CPT/HCPCS: 99213; G0463

== ENCOUNTER 2025-04-01 13:55 | Outpatient (AMB) | payer MEDICAID, SELFPAY ==
--- NOTE | 2025-04-01 14:09 | PD.GSCLVISIT ---
Vital Signs - [facility] 04/01/25 14:10 Height 1.5 m Height Method Measured Weight 77.593 kg Weight Measurement Method Standing Scale BMI 34.4 BP 107/75 Blood Pressure Source Automatic Cuff Blood Pressure Location Left Upper Arm Position Sitting Respiration 16 Pulse 103 H Pulse Source Monitor Temp 97.3 F Temp Source Temporal Artery Scan Pulse Oximetry (%) 96 Oxygen Delivery Method Room Air Med/Allergies Allergies & Medications Allergies aspirin Allergy (Intermediate, Verified 04/01/25 14:11) eyes swell ibuprofen Allergy (Intermediate, Verified 04/01/25 14:11) eyes swell Medication Reconciliation Linzess 145 mcg capsule (linaclotide) 145 mcg PO QDAY constipation #30 caps 04/01/25 [Rx] MA Intake Visit Data Collection New Patient or Established: Established Patient (seen at [facility] within 3 years) Seen by Clinical Staff ONLY (RN/MA): No Reason for Visit:: HEMORRHOIDS Pain Present Currently: Yes Pain Location: Rectum Pain scale:: 2 Pain Scale Used: Gonzalez-Franco/Numerical Practicing Urologist Required: No PCP or OBGYN visit in last 3 months: Yes Hx Now: No Do You Feel Safe at Home: Yes Authorities Contacted: N/A Smoking Status Smoking Status: Never smoker (VAPES) Immunization / Flu Flu Vaccine in the Last 12 Months: Yes Flu Vaccine Exclusion Criteria: Already Received Past Medical History Past Medical History CARDIAC: Negative Congestive Heart Failure RESPIRATORY: Positive Asthma; Negative Chronic Obstructive Pulmonary Disease (COPD) GENITOURINARY: Negative Renal Disease REPRODUCTIVE: Positive Previous Pregnancies ENDOCRINE: Negative Diabetes Mellitus Type 1 or Diabetes Mellitus Type 2 Surgical History SURGICAL: Positive Cardiac Surgery Social History SMOKING STATUS: Smoking status: Never smoker (VAPES) SECOND HAND EXPOSURE: second hand exposure: No ALCOHOL: Alcohol Intake: Never HOUSING: Housing: House HPI HPI Narrative HISTORY OF PRESENT ILLNESS I, Nisreen Chua, have obtained verbal consent from the patient, to be recorded during this encounter which may include, but not limited to, medical history, examination, treatment plans, and relevant health information.? Patient was informed that recording will be read and reviewed by myself before inclusion in the medical chart. The patient presents for follow up of hemorrhoids. She reports an increase in discomfort due to the development of a new area of perianal swelling since last visit. She experienced difficulty during her last bowel movement, which lasted approximately 1.5 hours, resulting in only partial relief. The process was painful, and she had to twist her body to facilitate the movement. Her bowel movements occur every 3 to 4 days and are consistently hard, often causing minor bleeding. She has been consuming a large bottle of Sparkling Ice drink daily for the past 3 weeks and also drinks a significant amount of juice. She has discontinued soda consumption due to her Zepbound prescription and a personal dislike for sugar. She is not currently using any creams or Sitz baths for relief. She expresses a preference for non-surgical treatment options. She is currently taking MiraLAX and fiber gummies but avoids other constipation medications due to severe cramping. ROS Review of Systems Systems Reviewed: All systems reviewed, normal except as documented Objective/Exam General General Appearance: alert, cooperative and well groomed Resp Respiratory exam: Absent respiratory distress Assessment & Plan Diagnosis / Problem List (1) Hemorrhoids: Status: Acute Assessment & Plan: As pt is continuing to have significant constipation, spending more than an hour on the toilet at times I explained that surgery is not recommended as her recovery would be absolutely unbearable without any changes in her bowel habits. I again recommended she increase water and fiber intake, providing a detailed handout and also informed she can use a sitz bath device placed on her toilet to alleviate swelling, pain, and bleeding. A handout detailing these recommendations was provided. As we have already discussed healthy bowel habits I did offer to prescribe linzess in the hopes it can improve her constipation, and explained that she should take it at the same time daily before meals. I also encouraged her to limit time on the toilet to <10 minutes per session. All questions were answered and pt expressed understanding Plan: F/u in 6 weeks Office Procedures GNS Level of Care Nursing/Assessment Patient Status: Established Patient Nursing Assessment/Reassesment: Medication Reconciliation, Update PMH in EMR and Vital Signs Coordination of Care: Complex Care and Chronic Disease 1-5, Education Complex Pt/Fam, Consent,records obtained, informed consent, Results/Orders obtained and Staff clarify orders Established Patient Charge Established Patient Point Assignment: 95 Established Patient Point Charge: EP Level 3 (80-115) Patient Portal Questionaires Social History Living Situation History Lives With: Family Housing: House Tobacco History Smoking Status: Never smoker (VAPES) Second Hand Smoke Exposure: No Alcohol History Alcohol Intake: Never Domestic Abuse History Do You Feel Safe at Home: Yes Review of Systems Report any current symptoms Only answer those that you have currently: Past Medical History Past Medical History Have you ever been diagnosed with any of the following: Cardiology Problems Congestive Heart Failure: No Respiratory Problems Chronic Obstructive Pulmonary Disease (COPD): No Asthma: Yes Genital/Urinary Problems Renal Disease: No Reproductive Problems Previous Pregnancies: Yes Endocrine Problems Diabetes Mellitus Type 1: No Diabetes Mellitus Type 2: No
[2025-04-01 14:10] VITALS: BP 107/75; PULSE 103; RESP 16; TEMP 36.3; O2SAT 96; BMI 34.4
== END 2025-04-01 14:31 | disposition home or self-care (01) ==
PROVIDERS: PCP Physician Assistant; Referring Provider Physician Assistant; Supervising Provider Surgery; Visit Provider Surgery
DX: K64.9 Unspecified hemorrhoids (principal); K59.00 Constipation, unspecified
CPT/HCPCS: 99213; G0463

== ENCOUNTER 2025-05-24 08:50 | Outpatient (AMB) | payer MEDICAID, SELFPAY ==
--- NOTE | 2025-05-24 09:10 | AMB.GYNCLNOT ---
Vital Signs 05/24/25 09:11 Height 1.5 m Height Method Stated Weight 71.838 kg Weight Measurement Method Standing Scale BMI 31.9 BP 100/64 Blood Pressure Source Automatic Cuff Blood Pressure Location Left Upper Arm Position Sitting Respiration 18 Pulse 79 Pulse Source Monitor Temp 98.2 F Temp Source Oral Pulse Oximetry (%) 98 Oxygen Delivery Method Room Air Allergies/Home Meds Allergies & Medications Allergies aspirin Allergy (Intermediate, Verified 05/24/25 09:12) eyes swell ibuprofen Allergy (Intermediate, Verified 05/24/25 09:12) eyes swell Medication Reconciliation Linzess 145 mcg capsule (linaclotide) 145 mcg PO QDAY constipation #30 caps 04/01/25 [Rx Confirmed 05/24/25] Intake Visit Data Collection New Patient or Established: Established Patient (seen at [facility] within 3 years) Reason for Visit:: IUD INSERTION Seen by Clinical Staff ONLY (RN/MA): No Accounts Payable Administrator Required: No Do You Feel Safe at Home: Yes Authorities Contacted: N/A PCP or OBGYN visit in last 3 months: Yes Date of Last PCP or OBGYN visit: 04/01/25 Hx Now: No Are you currently on any form of Control: Yes Last menstrual period: 05/20/25 Pain Present Currently: No Pain Scale Used: Gonzalez-Franco/Numerical Pain scale:: 0 Smoking Status Smoking Status: Never smoker (VAPES) Immunizations Flu Vaccine in the Last 12 Months: No Flu Vaccine Exclusion Criteria: Refused by Patient 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 1. Little interest or pleasure in doing things: not at all 2. Feeling down, depressed, or hopeless: not at all Total score: 0 PHQ-9 3. Trouble falling or staying asleep, or sleeping too much: Not at all 4. Feeling tired or having little energy: Not at all 5. Poor appetite or overeating: Not at all 6. Feeling bad about yourself - or that you are a failure or have let yourself or your family down: Not at all 7. Trouble concentrating on things, such as reading the newspaper or watching television: Not at all 8. Moving or speaking so slowly that other people could have noticed? - Or the opposite - being so fidgety or restless that you have been moving around a lot more than usual: not at all 9. Thoughts that you would be better off or of hurting yourself in some way: Not at all Total score: 0 If you checked off any problems, how difficult have these problems made it for you to do your work, take care of things at home, or get along with other people?: not difficult at all Source: Developed by Drs. Yakov Sheffield, Emi Noble, Manuel Bowser and colleagues, with an educational laurie from [employer]. Depression screen completed yes Social History Living Situation History Lives With: Family Housing: House Tobacco History Smoking Status: Never smoker (VAPES) Second Hand Smoke Exposure: No Alcohol History Alcohol Intake: Never Domestic Abuse History Do You Feel Safe at Home: Yes History of Present Illness HPI Narrative Carmela Maya presents for Mirena IUD removal and insertion. The patient's old IUD was found to be positioned in the cervical canal and required removal. A new IUD was successfully placed during this visit. The patient was counseled regarding potential cramping following the procedure and advised to take ibuprofen or naproxen as needed for symptom management. ROS: Negative except as stated above, limited to CLIENT ENGAGEMENT MANAGER and pertinent complaints. Exam General General Appearance: alert, in no apparent distress and healthy appearing Head Head exam: atraumatic Neck Neck exam: Present normal inspection and trachea midline Chest Chest inspection: Present normal inspection and symmetric chest wall rise External exam: Present normal external exam; Absent tenderness Neuro Neurological exam: Present oriented X3 Psych Psychiatric exam: Present normal affect and normal mood Office Procedures OBC Clinic LOC & Office Proc's Nursing/Assessment Patient Status: Established Patient OB Clinic Nursing Assessment: Medication Reconciliation, Update PMH in EMR and Vital Signs OB Clinic Coordination of Care: Consent,records obtained, informed consent, Education Simp Pt/Fam, Lab and Imaging orders, Results/Orders obtained and Staff clarify orders Established Patient Charge Established Patient Point Assignment: 80 Established Patient Point Charge: EP Level 3 (80-115) In Clinic Procedures Insertion of any IUD device: Yes Results Urine HCG Urine HCG Negative Last Edit by Rosalba Pineda MA on 05/24/25 09:14 Assessment & Plan Diagnosis / Problem List (1) Displacement of intrauterine contraceptive device, initial encounter: Status: Acute (2) Encounter for removal and reinsertion of intrauterine contraceptive device: Status: Acute Plan IUD removal and insertion: - The patient's old IUD was found to be positioned in the cervical canal rather than the uterine cavity. - The malpositioned IUD was successfully removed and a new IUD was placed appropriately. Plan: - Patient counseled to take ibuprofen or naproxen for cramping as needed. - Pelvic ultrasound ordered (authorization being requested). - Patient will be contacted once ultrasound authorization is approved to schedule imaging. - Follow-up appointment scheduled for June 28 at 11:30 AM. 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
[2025-05-24 09:11] VITALS: BP 100/64; PULSE 79; RESP 18; TEMP 36.8; O2SAT 98; BMI 31.9
== END 2025-05-24 09:58 | disposition home or self-care (01) ==
LOC: HODSOBC 08:50
PROVIDERS: Supervising Provider Obstetrics & Gynecology; Visit Provider Obstetrics & Gynecology
DX: T83.32XA Displacement of intrauterine contraceptive device, initial encounter (principal); Z88.6 Allergy status to analgesic agent; Y84.8 Other medical procedures as the cause of abnormal reaction of the patient, or of later complication, without mention of misadventure at the time of the procedure; Y76.2 Prosthetic and other implants, materials and accessory obstetric and gynecological devices associated with adverse incidents
CPT/HCPCS: 58300; 58301; 99213; J7298; G0463

== ENCOUNTER 2025-06-08 18:19 | Emergency (ER) | payer MEDICAID, SELFPAY ==
--- NOTE | 2025-06-08 18:28 | EKG_ITS ---
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
[2025-06-08 18:50] VITALS: BP 103/66; PULSE 68; RESP 18; TEMP 36.6; O2SAT 97; BMI 32.3
--- NOTE | 2025-06-08 18:56 | XR_ITS ---
Examination: Abdomen sonogram, Limited Date and time of exam: June 08, 20252007 hours INDICATIONS: Onset right upper abdominal pain today Technique: Real-time odom scale transabdominal sonographic images of the upper abdomen obtained. Findings: Multiple gallstones Gallbladder wall 0.52 cm Common bile duct 0.4 cm Pancreatic head 2.1 cm Liver 13.1 cm smooth contour Normal hepatopetal portal venous flow Patent IVC IMPRESSION: Cholelithiasis, consider HIDA scan or MRCP follow-up to confirm cholecystitis
--- NOTE | 2025-06-08 18:57 | PD.EDRME ---
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 Patient denies SOB and URI symptoms. Some RUE numbness when pain gets bad. Chief Complaint: Abdominal Pain Time Seen by Provider: 06/08/25 18:54 Vital signs: Vital Signs Temperature 98 F 06/08/25 18:50 Pulse Rate 68 06/08/25 18:50 Respiratory Rate 18 06/08/25 18:50 Blood Pressure 103/66 06/08/25 18:50 Pulse Oximetry (%) 97 06/08/25 18:50 Oxygen Delivery Method Room Air 06/08/25 18:50 Exam: RUQ tenderness. Clear lungs and normal WOB. Clinical Impression: Biliary disease vs gastritis vs anxiety vs dissection
--- NOTE | 2025-06-08 18:59 | XR_ITS ---
EXAMINATION: PA chest single view TECHNIQUE: Upright PA chest single view Date and time: June 08, 2025, 2023 hours INDICATIONS: Epigastric pain chest pain radiating to the back this week FINDINGS: Median sternotomy wires Normal heart size Lungs are clear Intact osseous structures IMPRESSION: No active disease
--- NOTE | 2025-06-08 19:31 | EDRME_ITS ---
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 Patient denies SOB and URI symptoms. Some RUE numbness when pain gets bad. 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 Patient denies SOB and URI symptoms. Some RUE numbness when pain gets bad. Exam: RUQ tenderness. Clear lungs and normal WOB. Clinical Impression: Biliary disease vs gastritis vs anxiety vs dissection
[2025-06-08 20:00] LABS: Alanine Aminotransferase 61 U/L (10-49); Albumin, Serum 4.3 gm/dL (3.5-5.0); Albumin/Globulin Ratio 1.5 (1.2-2.2); Alkaline Phosphatase 121 U/L (46-116); Anion Gap 8 (7-16); Aspartate Amino Transferase 48 U/L (0-34); BUN/Creatinine Ratio 23 Ratio (12-20); Bilirubin,Total 0.4 mg/dL (0.3-1.2); Blood Urea Nitrogen 16 mg/dL (9-23); Calcium 9.0 mg/dL (8.3-10.6); Calcium (Corrected) 9.0 mg/dL (8.5-10.1); Carbon Dioxide 25.9 mMol/L (20.0-31.0); Chloride 108 mMol/L (98-107); Creatinine (Component) 0.7 mg/dL (0.6-1.3); Estimated Creatinine Clearance 103.9 mL/min (>60); Globulin 2.9 gm/dL (2.3-3.5); Glucose 75 mg/dL (74-106); Lipase 33 U/L (12-53); Osmolality,Calculated 283 (275-295); Potassium 3.6 mMol/L (3.4-5.1); Sodium 142 mMol/L (136-145); Total Protein 7.2 gm/dL (5.7-8.2); Troponin I < 0.002 ng/mL (0.0-0.045); eGFR > 60 See Note
[2025-06-08 20:13] LABS: Basophils # (Auto) 0.1 Thou/mm3 (0.0-0.2); Basophils % (Auto) 1 % (0-2.5); Eosinophils # (Auto) 0.2 Thou/mm3 (0.0-0.5); Eosinophils % (Auto) 3 % (0-10); Hematocrit 37.1 % (36.0-46.0); Hemoglobin 11.4 g/dL (12.0-16.0); Immature Granulocytes Auto 0.02 Thou/mm3 (0.00-0.00); Lymphocytes # (Auto) 2.8 Thou/mm3 (1.0-4.8); Lymphocytes % (Auto) 41 % (10-50); Mean Corpuscular HGB Conc 30.7 g/dl (31.0-37.0); Mean Corpuscular Hemoglobin 21.2 pg (25.0-35.0); Mean Corpuscular Volume 69 fL (80-100); Monocytes # (Auto) 0.5 Thou/mm3 (0.0-0.8); Monocytes % (Auto) 7 % (0-12); Neutrophils # (Auto) 3.3 Thou/mm3 (1.8-7.7); Neutrophils % (Auto) 49 % (37-80); Nucleated Red Blood Cell # 0.00 Thou/mm3 (0.00-0.00); Nucleated Red Blood Cell % 0 /100 WBC (0); Platelet Count 237 Thou/mm3 (140-440); RDW Standard Deviation 42.5 fL (36.4-46.3); Red Blood Count 5.37 Miln/mm3 (4.00-5.20); White Blood Count 6.8 Thou/mm3 (3.6-11.0)
[2025-06-08 20:34] LABS: Collection Type, Urine Clean Catch
[2025-06-08 20:38] LABS: HCG Qualitative,Urine Negative
[2025-06-08 20:40] LABS: Amorphous Crystals,Urine Present (Absent); Bacteria,Urine Rare; Bilirubin,Urine Negative (Negative); Blood,Urine Negative (Negative); Clarity,Urine Clear (Clear/Hazy); Color,Urine Yellow (Lt Yel-Yel); Culture Indicated,Urine Not Indicated; Glucose, Urine Negative (Negative); Ketones,Urine 2+ (Negative); Leukocyte Esterase,Urine Positive (Negative); Nitrite,Urine Negative (Negative); PH,Urine 6.5 (5.0-7.0); Protein,Urine 1+ (Neg - Trace); RBC,Urine 1 /hpf (0-3); Specific Gravity,Urine 1.036 (1.001-1.035); Squamous Epithelial Cell,Urine 4 /hpf (0-5); Urobilinogen,Urine 2.0 mg/dL (0.0-1.0); WBC,Urine 3 /hpf (0-5)
--- NOTE | 2025-06-08 21:49 | PD.EDADULT ---
ED General RME/HPI General Chief complaint: Abdominal Pain Stated complaint: PAIN STERNUM TO ABD/BACK, R) ARM NUMB Time Seen by Provider: 06/08/25 18:54 Arrival date/time: 06/08/25 18:19 CC: Right upper quadrant abdominal pain intermittent for the past 3 days no prior history of similar events. Currently the pain is absent. The patient denies any nausea vomiting or diarrhea. Patient has a history of coarctation with repair as an . Not in any acute distress denies fever chills nausea or vomiting at this time. At 214 when the patient was assessed she is completely pain-free and resting comfortably. 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 Patient denies SOB and URI symptoms. Some RUE numbness when pain gets bad. Exam: RUQ tenderness. Clear lungs and normal WOB. Impression: Biliary disease vs gastritis vs anxiety vs dissection Related Data Previous Rx's ?Medication ?Instructions ?Recorded Linzess 145 mcg capsule 145 mcg PO QDAY constipation #30 04/01/25 (linaclotide) caps famotidine 10 mg tablet 10 mg PO QDAY #30 tabs 06/08/25 Allergies Allergy/AdvReac Type Severity Reaction Status Date / Time aspirin Allergy Intermediate eyes swell Verified 06/08/25 18:22 ibuprofen Allergy Intermediate eyes swell Verified 06/08/25 18:22 Review of Systems Review of Systems Narrative Review of Systems: GEN: No fever, no chills, no weight loss EYES: No discharge, no visual changes, no pain HEENT: No ear pain, no congestion, no sore throat PULM: No shortness of breath, no cough, no congestion CV: No chest pain, no dyspnea on exertion, no palpitations GI: No nausea, no vomiting, no diarrhea, + pain, no constipation : No frequency, no urgency, no dysuria MUSC/SKEL: No joint pain, no back pain SKIN: No rash PSYCH: No hallucinations, no depression HEME/LYMPH: No easy bleeding or bruising tendencies NEURO: No weakness, no headache Past Medical History Past Medical History CARDIAC: Negative Congestive Heart Failure RESPIRATORY: Positive Asthma; Negative Chronic Obstructive Pulmonary Disease (COPD) GENITOURINARY: Negative Renal Disease REPRODUCTIVE: Positive Previous Pregnancies ENDOCRINE: Negative Diabetes Mellitus Type 1 or Diabetes Mellitus Type 2 Surgical History SURGICAL: Positive Cardiac Surgery Social History SMOKING STATUS: Current some day smoker SECOND HAND EXPOSURE: No ED Exam Narrative Physical exam: [General: Obese not in in any acute distress Head normocephalic HEENT: Within acceptable limits Neck is supple nontender Chest equal chest rise nontender to palpation Respiratory: Clear to auscultation no wheezes crackles or rubs CV: Rate rhythm is regular no murmurs rubs or clicks Abdomen is distended secondary to body habitus soft, minimal right upper quadrant tenderness with deep palpation no reflexive guarding or rebound tenderness, no masses positive bowel sounds all 4 quadrants Back: No CVA tenderness no spinous process tenderness from cervical spine thoracic and lumbar spine Skin: Intact no petechiae rash induration ulceration or crepitus Extremities: Moving all extremity against resistance cap refill less than 2 seconds neurosensory intact Neuro: Awake alert oriented x3 Glascow coma 15 no focal deficits] Course Course Course Narrative: Patient has a very mild elevation in the LFTs but the T. bili is normal. The patient does have cholelithiasis with mild gallbladder wall thickening there is no leukocytosis or pain of any kind at this time. Uncomfortable discharging this patient home to outpatient follow-up with the surgeon. Patient is advised if there is a worsening of symptoms to return the emergency room for reevaluation. Quality Measures none Orders Category Date Time Status EKG (ED ONLY) *Do not use* NOW Care 06/08/25 18:28 Completed EKG (ED Only) Stat Exams 06/08/25 18:28 Draft US gall bladder Stat Exams 06/08/25 18:56 Completed XR chest 1V portable Stat Exams 06/08/25 18:59 Completed CBC Stat Lab 06/08/25 19:14 Completed CMP [Comprehensive Metabolic Panel] Stat Lab 06/08/25 19:14 Completed HCG Qualitative,Urine Stat Lab 06/08/25 20:26 Completed Lipase Stat Lab 06/08/25 19:14 Completed Lipid Panel Stat Lab 06/08/25 19:04 Completed Troponin I Stat Lab 06/08/25 19:14 Completed Urinalysis, C/S if Indicated Stat Lab 06/08/25 20:26 Completed Vital Signs Vital signs: Vital Signs Temperature 98 F 06/08/25 18:50 Pulse Rate 68 06/08/25 18:50 Respiratory Rate 18 06/08/25 18:50 Blood Pressure 103/66 06/08/25 18:50 Pulse Oximetry (%) 97 06/08/25 18:50 Oxygen Delivery Method Room Air 06/08/25 18:50 Discharge Plan Plan Patient Disposition: HOME (Self Care) Patient condition on transfer: Stable Prescriptions/Referrals Prescriptions/Med Rec: New famotidine 10 mg tablet 10 mg PO QDAY Qty: 30 1RF No Action Linzess 145 mcg capsule 145 mcg PO QDAY Qty: 30 3RF Rx Instructions: Take 1 tablet at least 30 mins before meals at the same time daily [facility] [Primary Care Provider] - In 1 week Keri Molina MD [Physician, General Surgery] - In 1 week Problem List Clinical Impression: Right upper quadrant abdominal pain, Cholelithiasis Patient/Caregiver Discharge Instructions Education Materials: What Are Gallstones, Treating Gallstones Additional Instructions: Avoid all greasy spicy and fatty foods take the medication as prescribed to decrease acid production in the stomach. Follow-up with the surgeon listed above. If there is a worsening of symptoms including nausea and vomiting return to the emergency room for reevaluation. 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 EKG Interpretation EKG #1: EKG Interpretation: EKG performed at 1848 shows a ventricular rate of 6 7 parable 15 7, QRS of 92 QTc of 412 this is a normal sinus rhythm. Labs Labs: interpreted by pr Lab(s) Interpretation(s): CBC shows no acute leukocytosis hemoglobin 11.4 normal hematocrit. No leukocytosis. CMP shows no significant electrolyte imbalances no renal impairment T. bili at 0.4 mild transaminitis with an AST of 48 ALT of 61 alk phos of 121. Troponin is within acceptable limits Urine is negative for urinary tract infection Lipase is normal Imaging Imaging interpretation: interpreted by me Imaging Interpretation(s): Chest x-ray as interpreted by me shows no acute finding. Cholelithiasis with very mild gallbladder wall thickening. Diagnosis Differential Diagnosis ED Complaint MDM: Cholelithiasis cholecystitis choledocholithiasis
[2025-06-08 22:05] VITALS: BP 109/59; PULSE 58; RESP 15; TEMP 36.8; O2SAT 100
[2025-06-08 22:14] LABS: Cardiac Risk Estimate 3.4 RATIO (3.7-5.6); Cholesterol 106 mg/dL (132-200); HDL Cholesterol 31 mg/dL (40-60); LDL Cholesterol,Calculated 58 mg/dL (0-130); Triglycerides 83 mg/dL (30-150)
== END 2025-06-08 22:25 | disposition home or self-care (01) ==
PROVIDERS: Physician Assistant; Registered Nurse General Practice; Emergency Provider Emergency Medicine; PCP Nurse Practitioner Family
DX: K80.20 Calculus of gallbladder without cholecystitis without obstruction (principal); R10.11 Right upper quadrant pain; R10.13 Epigastric pain; R07.9 Chest pain, unspecified
CPT/HCPCS: 36415; 71045; 76705; 80053; 80061; 81001; 81025; 83690; 84484; 85025; 93005; 99283